=== PATIENT | male | born 1985 | race Caucasian/White ===

== ENCOUNTER 2020-04-16 11:34 | Emergency (ER) | payer OTHER ==
--- NOTE | 2020-04-16 13:27 | EDM.PDOC ---
ED HPI GENERAL MEDICAL PROBLEM - General Chief Complaint: ENT Problem Stated Complaint: SORE THROAT Time Seen by Provider: 04/16/20 12:06 Source of Information: Reports: Patient, RN Notes Reviewed History Limitations: Reports: No Limitations - History of Present Illness INITIAL COMMENTS - FREE TEXT/NARRATIVE: Patient is a 34-year-old male presenting to the emergency department with complaints of sore throat. Symptoms began on Thursday, which is 3 days ago. Patient states it is painful to eat or swallow. He has had no fever, chills, nausea, or vomiting. Denies any cough or nasal congestion. Throat Pain Score (Numeric/FACES): 10 - Related Data Allergies Allergy/AdvReac Type Severity Reaction Status Date / Time No Known Allergies Allergy Verified 04/16/20 12:08 Home Meds: Home Meds . [No Known Home Meds] 12/05/17 [History] Past Medical History - Past Health History Medical/Surgical History: Denies Medical/Surgical History HEENT History: Reports: Other (See Below) Other HEENT History: wears glasses Musculoskeletal History: Reports: Back Pain, Chronic - Infectious Disease History Infectious Disease History: Reports: None - Past Surgical History HEENT Surgical History: Reports: None Musculoskeletal Surgical History: Reports: None Social & Family History - Family History Family Medical History: No Pertinent Family History - Tobacco Use Tobacco Use Status *Q: Never Tobacco User - Caffeine Use Caffeine Use: Reports: Coffee ED ROS ENT - Review of Systems Review Of Systems: See Below Constitutional: Reports: No Symptoms. Denies: Fever, Chills, Decreased Appetite HEENT: Reports: Throat Pain Respiratory: Reports: No Symptoms Cardiovascular: Reports: No Symptoms Endocrine: Reports: No Symptoms GI/Abdominal: Reports: No Symptoms : Reports: No Symptoms Musculoskeletal: Reports: No Symptoms Skin: Reports: No Symptoms Neurological: Reports: No Symptoms Psychiatric: Reports: No Symptoms Hematologic/Lymphatic: Reports: No Symptoms Immunologic: Reports: No Symptoms ED EXAM, ENT - Physical Exam Exam: See Below General Appearance: Alert, WD/WN, No Apparent Distress Mouth/Throat: Pharyngeal Erythema, Throat Pain, Tonsillar Erythema, Tonsillar Swelling. No: Tongue Swelling, Tonsillar Exudates Respiratory/Chest: No Respiratory Distress, Lungs Clear, Normal Breath Sounds, No Accessory Muscle Use, Chest Non-Tender Cardiovascular: Normal Peripheral Pulses, Regular Rate, Rhythm, No Edema, No Gallop, No JVD, No Murmur, No Rub GI/Abdominal: Normal Bowel Sounds, Soft, Non-Tender, No Organomegaly, No Distention, No Abnormal Bruit, No Mass Neurological: Alert, Oriented, CN II-XII Intact, Normal Cognition, Normal Gait, Normal Reflexes, No Motor/Sensory Deficits Psychiatric: Normal Affect, Normal Mood Skin: Warm, Dry, Intact, Normal Color, No Rash Course - Vital Signs Last Recorded V/S: Last Vital Signs Temp 97.6 F 04/16/20 12:06 Pulse 76 04/16/20 12:06 Resp 16 04/16/20 12:06 BP 125/76 04/16/20 12:06 Pulse Ox 100 04/16/20 12:06 - Orders/Labs/Meds Labs: Laboratory Tests 04/16/20 Range/Units 12:20 Group A Strep (PCR) Not detected (NOT DETECT) - Re-Assessments/Exams Free Text/Narrative Re-Assessment/Exam: 04/16/20 13:34 Patient was negative for strep A. Discussed possibility of testing for Covid, however patient declined. Discussed symptomatic treatment for viral pharyngitis. Discussed return precautions. Discharge instructions as documented. 04/16/20 13:54 I was notified by nursing staff that patient is requesting something prescribed for his sore throat. Visit with the patient. Offered prescription strength Naprosyn which he declined. Discussed that the available treatments for sore th roat are [id number] including throat lozenges, Chloraseptic spray, and NSAIDs. He verbalized understanding of this. Departure - Departure Time of Disposition: 13:35 Disposition: Home, Self-Care 01 Condition: Good Clinical Impression: Pharyngitis Qualifiers: Pharyngitis/tonsillitis etiology: unspecified etiology Qualified Code(s): J02.9 - Acute pharyngitis, unspecified - Discharge Information *PRESCRIPTION DRUG MONITORING PROGRAM REVIEWED*: No *COPY OF PRESCRIPTION DRUG MONITORING REPORT IN PATIENT GARETH: No Instructions: Sore Throat Referrals: PCP,None [Primary Care Provider] - Forms: ED Department Discharge Additional Instructions: You were seen in the emergency department today for sore throat since Thursday. You were checked for strep and this was found to be negative. As we discussed, sore throat is likely viral in nature. Recommend symptomatic treatment including Chloraseptic sprays, salt water rinses, and cold beverages and foods until symptoms improve. If you experience any worsening symptoms or symptoms f ail to improve by the end of the week, recommend follow-up in the clinic or return to ER as needed. Sepsis Event Note (ED) - Evaluation Sepsis Screening Result: No Definite Risk
== END 2020-04-16 13:53 | disposition home or self-care (01) ==
LOC: JD.ED 11:34
DX: J02.9 Acute pharyngitis, unspecified (principal)
CPT/HCPCS: 87651-QW; 99283